=== PATIENT | female | born 1975 | race African-American/Black ===

== ENCOUNTER 2017-07-02 21:15 | Emergency (ER) | payer BC ==
[2017-07-02 23:37] LABS: HEMATOCRIT 32.9 % (36.0-48.0); HEMOGLOBIN 10.9 g/dL (12-16); LYMPHOCYTES 42.6 % (15-50); MCHC 33.1 g/dL (31.0-37.0); MCV 78.5 fL (80.0-100.0); NEUTROPHILS 52.2 % (40-80); PLATELET COUNT 269 10x3/uL (130-400); RBC 4.19 10x6/uL (4.00-5.40); RDW 13.8 % (11.5-14.5); WBC 5.4 10x3/uL (4.8-10.8)
[2017-07-02 23:52] LABS: ALBUMIN 3.2 g/dL (3.4-5.0); ALKALINE PHOSPHATASE 89 U/L (46-116); ALT (SGPT) 16 U/L (10-68); BILIRUBIN - TOTAL 0.32 mg/dL (0.2-1.3); CALC OSMOLALITY 280 mosm/kg (275-300); CALCIUM 8.7 mg/dL (8.5-10.1); CARBON DIOXIDE 25.3 mmol/L (21.0-32.0); CHLORIDE - SERUM 106 mmol/L (98-107); CREATININE - SERUM 0.8 mg/dL (0.6-1.3); GLUCOSE 102 mg/dL (74-106); POTASSIUM - SERUM 3.3 mmol/L (3.5-5.1); PROTEIN - SERUM 7.3 g/dL (6.4-8.2); SODIUM 141 mmol/L (136-145); UREA NITROGEN 12 mg/dL (7-18); eGFR NON AFRICAN AMERICAN 83 mL/min (90-120)
[2017-07-03] LABS: CREATINE KINASE 98 UL (21-215); PRO BNP 69 pg/mL (0-125)
[2017-07-03 00:02] LABS: TROPONIN-I < 0.017 ng/mL (0.000-0.060)
== END 2017-07-03 02:20 | disposition home or self-care (01) ==
LOC: D.ER 21:15
PROVIDERS: Emergency Medicine
DX: G43.909 Migraine, unspecified, not intractable, without status migrainosus (principal); R07.9 Chest pain, unspecified; I10 Essential (primary) hypertension; D64.9 Anemia, unspecified; E87.6 Hypokalemia